=== PATIENT | male | born 1945 | race Hispanic/Latino ===

== ENCOUNTER 2019-04-28 13:50 | Emergency (ER) | payer MEDICARE ==
[2019-04-28] MEDS ORDERED: BOOSTRIX IM ONE (15:22)
--- NOTE | 2019-04-28 15:24 | Event Note ---
ED Screening Note Date of service: 04/28/19 Time: 15:20 ED Screening Note: 73 y/o male come in for left 3rd digit laceration that happened about 2pm. No blood thinner except ASA. This initial assessment/diagnostic orders/clinical plan/treatment(s) is/are subject to change based on patients health status, clinical progression and re- assessment by fellow clinical providers in the ED. Further treatment and workup at subsequent clinical providers discretion. Patient/guardian urged not to elope from the ED as their condition may be serious if not clinically assessed and managed. Initial orders include:
--- NOTE | 2019-04-28 16:06 | XRay Report ---
PROCEDURE: XR FINGER(S) 2+V LT TECHNIQUE: Left third finger, 3 views HISTORY: laceration to 3RD DIGIT COMPARISONS: None available FINDINGS: There is soft tissue defect at the tip of the third finger, with comminuted fracture of the underlyin g third distal phalanx. No joint dislocation is seen. No radiopaque foreign body. IMPRESSION: There is soft tissue defect at the tip of the third finger, with comminuted fracture of the underlyin g third distal phalanx. This document is electronically signed by Marielena Lobato MD., April 28 2019 04:04:28 PM ET
--- NOTE | 2019-04-28 16:32 | Emergency Department Report ---
ED Upper Extremity Inj HPI - General Chief Complaint: Extremity Injury, Upper Stated Complaint: FINGER LAC Time Seen by Provider: 04/28/19 16:15 Source: patient Mode of arrival: Ambulatory Limitations: No Limitations - History of Present Illness Initial Comments: Patient is a 73-year-old male that presents to emergency room with complaints of left third digit injury. Patient states he cut the finger was completely off today at 3 PM. Patient states the tip of the finger saying all with this. And that he was able to see bone after it happened. Patient states bleeding is controlled with direct pressure. Patient states his tetanus is out of date. He states he doesn't know the last time he got a tetanus shot. Patient states the pain is a 8 out of 10 and is sharp and throbbing. Patient states the pain is better with rest and not moving the finger. Patient states the pain is worse with movement and palpation. MD Complaint: Injury to:: left, finger -: Sudden Other Extremity Injury: Fingers: Left Other Injuries: none Handedness: right Place: home Severity scale (0 -10): 8 Improves With: immobilization, rest Worsens With: movement of extremity Context: laceration Associated Symptoms: denies other symptoms Treatments Prior to Arrival: bandage - Related Data Allergies Allergy/AdvReac Type Severity Reaction Status Date / Time No Known Allergies Allergy Unverified 04/28/19 15:25 ED Review of Systems ROS: Stated complaint: FINGER LAC Other details as noted in HPI Constitutional: denies: chills, fever Eyes: denies: eye pain, eye discharge, vision change ENT: denies: ear pain, throat pain Respiratory: denies: cough, shortness of breath, wheezing Cardiovascular: denies: chest pain, palpitations Endocrine: no symptoms reported Gastrointestinal: denies: abdominal pain, nausea, diarrhea Genitourinary: denies: urgency, dysuria Musculoskeletal: denies: back pain, joint swelling, arthralgia Skin: denies: rash, lesions Neurological: denies: headache, weakness, paresthesias Psychiatric: denies: anxiety, depression Hematological/Lymphatic: denies: easy bleeding, easy bruising ED Past Medical Hx - Past Medical History Previous Medical History?: No - Surgical History Past Surgical History?: No - Family History Family history: no significant - Social History Smoking Status: Never Smoker Substance Use Type: None ED Physical Exam - General Limitations: No Limitations General appearance: alert, in no apparent distress - Head Head exam: Present: atraumatic, normocephalic - Eye Eye exam: Present: normal appearance - ENT ENT exam: Present: mucous membranes moist - Neck Neck exam: Present: normal inspection - Respiratory Respiratory exam: Present: normal lung sounds bilaterally. Absent: respiratory distress - Cardiovascular Cardiovascular Exam: Present: regular rate, normal rhythm. Absent: systolic murmur, diastolic murmur, rubs, gallop - GI/Abdominal GI/Abdominal exam: Present: soft, normal bowel sounds - Rectal Rectal exam: Present: deferred - Extremities Exam Extremities exam: Present: normal inspection (except for left hand. Left third digit shows complete avulsion of tip of finger with bone exposure. Bleeding is controlled.) - Back Exam Back exam: Present: normal inspection - Neurological Exam Neurological exam: Present: alert, oriented X3 - Psychiatric Psychiatric exam: Present: normal affect, normal mood - Skin Skin exam: Present: warm, dry, normal color, other (avulsion of tip of left th ird digit). Absent: rash ED Course Vital Signs 04/28/19 04/28/19 04/28/19 15:23 15:49 17:27 Temperature 97.6 F Pulse Rate 85 88 Respiratory 18 16 16 Rate Blood Pressure 152/78 Blood Pressure 158/72 [Right] O2 Sat by Pulse 95 98 Oximetry 04/28/19 18:08 Temperature 97.6 F Pulse Rate 88 Respiratory 18 Rate Blood Pressure Blood Pressure 158/80 [Right] O2 Sat by Pulse Oximetry - Reevaluation(s) Reevaluation #1: Since the patient's tetanus out of date. Tetanus will be given. Due to the fact the patient has an open fracture, Ancef will be given IV. I discussed the need for transfer to a center with a specialty of hand surgery. Patient states he does not want to be transferred via ambulance and wants to go by POV. 04/28/19 16:29 After discussing with his family the patient has agreed to stay and allow us to transfer via EMS to [facility]. [facility] will be consult. IV placed by nurse and the patient will receive IV Ancef and pain meds 04/28/19 16:50 Reevaluation #2: Discussed all results with patient. She will be transferred to [facility] via EMS.. Patient agrees to plan of care. 04/28/19 17:30 - Consultations Consultation #1: [facility] consults for possible transfer to hand surgery. I discussed the case with Dr. Bernabe. Dr. Bernabe has accepted the patient. 04/28/19 17:07 Consultation #2: I discussed the case with Dr. Rascon, orthopedist. Dr. Rascon wants patient transferred to a hand specialist. 04/28/19 17:11 ED Medical Decision Making - Lab Data Result diagrams: 04/28/19 16:53 04/28/19 16:53 - Radiology Data Radiology results: report reviewed PROCEDURE: XR FINGER(S) 2+V LT TECHNIQUE: Left third finger, 3 views HISTORY: laceration to 3RD DIGIT COMPARISONS: None available FINDINGS: There is soft tissue defect at the tip of the third finger, with comminuted fracture of the underlying third distal phalanx. No joint dislocation is seen. No radiopaque foreign body. IMPRESSION: There is soft tissue defect at the tip of the third finger, with comminuted fracture of the underlying third distal phalanx. - Medical Decision Making Patient is a 73-year-old male that presents emergency room with left third digit injury. Patient to have an almost complete avulsion of the tip of his left third digit beginning at the nailbed and extending distally. Patient bleeding controlled with direct pressure. Patient had an x-ray done and shows a comminuted fracture of the distal phalanx of the third digit which would represent an open fracture due to the avulsion of the tip. Patient given tetanus. Patient given IV Ancef. Patient really did not want to be transferred via ambulance but after discussing with the family patient has agreed. Patient sent via EMS to [facility]. Hand surgery a [facility] consultation and agrees to transfer. Dr. Rascon consultation at this facility and Dr. Rascon wants the patient be transferred to a facility that has a hand specialist. Labs unremar kable. - Differential Diagnosis finger tip avulsion. finger fx. Critical Care Time: Yes Critical care attestation.: If time is entered above; I have spent that time in minutes in the direct care of this critically ill patient, excluding procedure time. Critical Care Time: 45 minutes ED Disposition Clinical Impression: Finger fracture, left Qualifiers: Encounter type: initial encounter Finger: middle finger Fracture type: open Phalanx: distal Fracture alignment: displaced Qualified Code(s): S62.633B - Displaced fracture of distal phalanx of left middle finger, initial encounter for open fracture Avulsion of finger tip Qualifiers: Encounter type: initial encounter Qualified Code(s): S61.209A - Unspecified open wound of unspecified finger without damage to nail, initial encounter Disposition: DC/TX-70 ANOTHER TYPE HLTHCARE Is pt being admited?: No Does the pt Need Aspirin: No Condition: Critical Time of Disposition: 17:12
[2019-04-28] MEDS ORDERED: ANCEF/STERILE WATER 2 GM/20 ML 2 GM/20 ML SYRINGE IV NR ×2 (16:43→17:00)
[2019-04-28] MEDS ORDERED: NORCO 5/325 PO ONE (16:44)
[2019-04-28] MEDS ORDERED: DILAUDID IV ONE (16:50)
[2019-04-28 17:23] LABS: Hematocrit 43.2 % (35.5-45.6); Hemoglobin 14.6 gm/dl (11.8-15.2); Mean Corpuscular HGB Conc 34 % (32-34); Mean Corpuscular Volume 93 fl (84-94); Platelet Count 321 K/mm3 (140-440); Red Blood Count 4.66 M/mm3 (3.65-5.03); Red Cell Distribution Width 14.9 % (13.2-15.2)
[2019-04-28 17:27] LABS: Alanine Aminotransferase 13 units/L (7-56); Albumin 4.6 g/dL (3.9-5); BUN/Creatinine Ratio 27; Blood Urea Nitrogen 30 mg/dL (9-20); Calcium 10.1 mg/dL (8.4-10.2); Hemolysis Index 24
[2019-04-28 17:56] LABS: Erythrocyte Sedimentation Rate 12 mm/Hr (0-20)
[2019-04-28 18:09] VITALS: BP 158/80
== END 2019-04-28 18:08 | disposition other institution (70) ==
LOC: ED 13:50
DX: S62.633B Displaced fracture of distal phalanx of left middle finger, initial encounter for open fracture (principal); S61.303A Unspecified open wound of left middle finger with damage to nail, initial encounter; W31.2XXA Contact with powered woodworking and forming machines, initial encounter; Y93.89 Activity, other specified; Y92.89 Other specified places as the place of occurrence of the external cause; Y99.8 Other external cause status
CPT/HCPCS: 36415; 73140; 80053; 85027; 85652; 90471; 90715; 96374; 99285; J0690; J1170